=== PATIENT | male | born 1975 | race African-American/Black ===

== ENCOUNTER 2017-12-30 15:31 | Emergency (ER) | payer OTHER ==
[~2017-12-30] VITALS: Ht 175.3 cm; Wt 77.1 kg
[~2017-12-30 15:31] MED LIST: OSEL75CA PO; PROVENTIL HFA6.7 GM IH; TUSICOF LIQUID120 ML PO; ZANTAC300 MG PO
[2017-12-31] MEDS ORDERED: PHENERGAN25 MG PO (03:36)
[2017-12-31] MEDS ORDERED: PEPCID40 MG PO ×2 (03:37→03:38)
[2017-12-31] MEDS ORDERED: PNEU16DI2 (03:37)
== END 2017-12-31 04:00 | disposition home or self-care (01) ==
LOC: ER 15:31
DX: J11.1 Influenza due to unidentified influenza virus with other respiratory manifestations (principal); G43.909 Migraine, unspecified, not intractable, without status migrainosus